=== PATIENT | female | born 1965 | race Caucasian/White ===

== ENCOUNTER → 2018-03-12 08:22 | Outpatient (CLI) | payer OTHER, SELFPAY ==
[2018-03-12 09:20] LABS: Add Manual Diff / Slide Review NO; Basophils Percent Auto 0.5 % (0-2); Eosinophils Percent Auto 1.6 % (2-4); Hematocrit 36.2 % (36-46); Hemoglobin 11.6 g/dL (12.0-16.0); Lymphocytes Percent Auto 30.3 % (25-40); Mean Corpuscular Hemoglobin 25.7 PG (26-34); Mean Corpuscular Volume 80.4 fL (80-100); Neutrophils Absolute Auto 3400 /uL (3000-5900); Neutrophils Percent Auto 57.6 % (50-75); Platelet Count 243 X10^3/uL (150-400); Red Cell Distribution Width 16.1 % (11.6-14.8); White Blood Cell Count 5.9 X10^3/uL (4.5-11.0)
[2018-03-12 09:42] LABS: Alanine Aminotransferase 34 IU/L (9-52); Albumin 4.4 g/dL (3.5-5.0); Albumin Globulin Ratio 1.4 (1.0-2.8); Alkaline Phosphatase 70 U/L (38-126); Aspartate Aminotransferase 35 IU/L (14-36); BUN Creatinine Ratio 12.5 (6-22); Bilirubin Total 0.5 mg/dL (0.2-1.3); Blood Urea Nitrogen 10 mg/dL (7-17); Calcium 9.3 mg/dL (8.4-10.2); Carbon Dioxide 28 mmol/L (22-32); Chloride 99 mmol/L (98-107); Cholesterol 170 mg/dL (140-199); Estimated Glomerular Filt Rate > 60.0 mL/min (>60); Globulin 3.2 g/dL (1.7-4.1); Glucose 89 mg/dL (70-100); HDL Cholesterol 79 mg/dL (40-60); HEMOLYSIS < 15 (0-50); LDL Cholesterol Calculated 80 mg/dL (<100); Potassium 4.3 mmol/L (3.4-5.1); Sodium 139 mmol/L (137-145); Total Protein 7.6 g/dL (6.3-8.2); Triglycerides 55 mg/dL (35-150)
[2018-03-12 10:07] LABS: TSH w/ Reflex to FT4 5.09 uIU/mL (0.47-4.68)
[2018-03-12 10:34] LABS: Free T4, Direct Thyroxine 0.77 ng/dL (0.78-2.19)
== END ==
PROVIDERS: PCP Family Medicine; Visit Provider Family Medicine
DX: Z00.00 Encounter for general adult medical examination without abnormal findings (principal)
CPT/HCPCS: 36415; 80053; 80061; 84439; 84443; 84481; 85025

== ENCOUNTER → 2018-05-06 17:09 | Outpatient (CLI) | payer OTHER, SELFPAY ==
[2018-05-06 18:32] LABS: Vitamin D 25 Hydroxy (D3) 53.8 ng/mL (30.0-100.0)
[2018-05-06 18:34] LABS: Free T4, Direct Thyroxine 0.68 ng/dL (0.78-2.19)
[2018-05-06 18:47] LABS: Thyroid Stimulating Hormone 3.94 uIU/mL (0.47-4.68)
[2018-05-08 14:11] LABS: Thyroid Peroxidase Antibodies 561 IU/mL (< 9)
[2018-05-09 21:46] LABS: Triiodothyronine T3 Total 73 ng/dL (76-181)
[2018-05-10 14:14] LABS: Triiodothyronine T3 Reverse 13 ng/dL (8-25)
== END ==
PROVIDERS: PCP Family Medicine; Visit Provider Family Medicine
DX: E06.3 Autoimmune thyroiditis (principal); Z78.0 Asymptomatic menopausal state
CPT/HCPCS: 36415; 82306; 83001; 84439; 84443; 84480; 84481; 84482; 86376

== ENCOUNTER → 2018-05-08 08:08 | Outpatient (CLI) | payer OTHER, SELFPAY | PROVIDERS: PCP Family Medicine; Visit Provider Family Medicine | DX: Z12.31 Encounter for screening mammogram for malignant neoplasm of breast (principal); Z53.9 Procedure and treatment not carried out, unspecified reason ==

== ENCOUNTER → 2018-05-24 12:10 | Outpatient (CLI) | payer OTHER, SELFPAY ==
--- NOTE | 2018-05-24 | DI.MRI.S_ITS ---
PROCEDURE: MR CERVICAL SPINE WO CON INDICATIONS: STRAIN OF MUSCLE/TENDON AT NECK LEVEL TECHNIQUE: Noncontrast sagittal T1 spin echo and T2 fast spin echo, sagittal STIR, foraminal oblique sagittal T2 fast spin echo, and axial gradient echo or T2 fast spin echo through the cervical spine. COMPARISON: [facility], , C-SPINE COMPLETE W FLEX/EXTEN, 10/26/2011, 12:10. [facility], CERVICAL SPINE 2 OR 3 VIEWS, 01/22/2015, 11:12. FINDINGS: Image quality: Diagnostic Alignment and Curvature: There is normal bony alignment. Bone Marrow: Marrow demonstrates normal overall signal. Spinal Cord: Visualized spinal cord has normal size and signal. No cerebellar tonsillar herniation. Paraspinous Soft Tissues: No paravertebral masses. Prevertebral soft tissues are normal in thickness. C2-C3: No significant abnormality is seen. C3-C4: The disc height is well-preserved. Loss of disc signal is seen at this level. Moderate bilateral neural foraminal narrowing is seen, right worse than left. Mild central canal narrowing is seen. C4-C5: Mild loss of disc height is seen. Loss of disc signal is seen. Mild to moderate disc osteophyte complex is seen. Mild facet joint hypertrophy is seen. Moderate bilateral neural foraminal narrowing is seen. Mild to moderate central canal narrowing is seen. C5-C6: The disc height is well-preserved. Loss of disc signal is seen at this level. Moderate generalized disc osteophyte complex is seen. Mild to moderate facet hypertrophy is seen. There is moderate to severe bilateral neural foraminal narrowing seen. Moderate central canal narrowing is seen. C6-C7: Postoperative changes are seen anteriorly, with associated susceptibility artifact. Mild to moderate disc osteophyte complex is seen. Moderate bilateral neural foraminal narrowing is seen, left worse than right. Minimal central canal narrowing is seen. C7-T1: The disc height is well-preserved. Loss of disc signal is seen at this level. A mild degree of generalized disc osteophyte complex is seen. Mild bilateral neural foraminal narrowing is seen. The central canal is widely patent. IMPRESSION: Unremarkable C6-C7 hardware anteriorly. Multiple levels of cervical spine degenerative change are seen, including moderate to severe bilateral neural foraminal narrowing at C5-C6. Dictated by: Darwin King M.D. on 05/24/2018 at 13:49 Approved by: Darwin King M.D. on 05/24/2018 at 13:56
== END ==
PROVIDERS: PCP Family Medicine; Visit Provider Orthopaedic Surgery
DX: S16.1XXA Strain of muscle, fascia and tendon at neck level, initial encounter (principal); M47.812 Spondylosis without myelopathy or radiculopathy, cervical region; M48.02 Spinal stenosis, cervical region
CPT/HCPCS: 72141

== ENCOUNTER → 2018-07-05 12:28 | Outpatient (CLI) | payer OTHER, SELFPAY ==
--- NOTE | 2018-07-05 | DI.MG.S_ITS ---
BILATERAL DIGITAL SCREENING MAMMOGRAM 3D/2D WITH CAD: 07/05/2018 CLINICAL: Routine screening. Family history of breast cancer. Comparison is made to exams dated: 05/22/2017 mammogram, 03/23/2016 mammogram, and 01/06/2015 mammogram - [facility]. The tissue of both breasts is extremely dense, which lowers the sensitivity of mammography. Current study was also evaluated with a Computer Aided Detection (CAD) system. There are a grouped calcifications in the left breast central to the nipple middle depth. No other significant masses, calcifications, or other findings are seen in either breast. IMPRESSION: INCOMPLETE: NEEDS ADDITIONAL IMAGING EVALUATION The grouped calcifications in the left breast are indeterminate. Spot magnification views are recommended. This exam was interpreted at Station ID: [id number]. NOTE: For mammograms, a report in lay terms will be sent to the patient. Approximately 15% of breast malignancies will not be visualized mammographically. In the management of a palpable breast mass, a negative mammogram must not discourage biopsy of a clinically suspicious lesion. Electronically Signed By: Jacque paige/christophe:07/05/2018 16:54:07 letter sent: Additional Imaging Needed ACR BI-RADS Category 0: Incomplete 3340F
== END ==
PROVIDERS: PCP Family Medicine; Visit Provider Family Medicine
DX: Z12.31 Encounter for screening mammogram for malignant neoplasm of breast (principal); Z80.3 Family history of malignant neoplasm of breast
CPT/HCPCS: 77063; 77067

== ENCOUNTER → 2018-07-23 13:11 | Outpatient (CLI) | payer OTHER, SELFPAY ==
--- NOTE | 2018-07-23 13:12 | DI.MG.S_ITS ---
UNILATERAL LEFT DIGITAL DIAGNOSTIC MAMMOGRAM 3D/2D WITH ADDITIONAL VIEWS: 07/23/2018 CLINICAL: Additional evaluation requested from prior study. Comparison is made to exams dated: 07/05/2018 mammogram, 05/22/2017 mammogram, and 03/23/2016 mammogram - [facility]. The tissue of left breast is extremely dense, which lowers the sensitivity of mammography. There are new grouped fine punctate calcifications in the left breast at 5 o'clock middle depth. No other significant masses or calcifications are seen in the breast. IMPRESSION: SUSPICIOUS OF MALIGNANCY The new grouped fine punctate calcifications in the left breast are at a low suspicion for malignancy. A stereotactic biopsy is recommended. The findings were discussed with the patient at the conclusion of the study by Dr. Sage. This exam was interpreted at Station ID: [id number]. NOTE: For mammograms, a report in lay terms will be sent to the patient. Approximately 15% of breast malignancies will not be visualized mammographically. In the management of a palpable breast mass, a negative mammogram must not discourage biopsy of a clinically suspicious lesion. Electronically Signed By: Barrie ramirez/:07/23/2018 14:41:45 letter sent: Biopsy Required ACR BI-RADS Category 4a: Suspicious abnormality - low suspicion for malignancy [id number]
== END ==
PROVIDERS: PCP Family Medicine; Visit Provider Family Medicine
DX: R92.1 Mammographic calcification found on diagnostic imaging of breast (principal); N60.11 Diffuse cystic mastopathy of right breast; N60.12 Diffuse cystic mastopathy of left breast; Z98.890 Other specified postprocedural states
CPT/HCPCS: 77065; G0279

== ENCOUNTER → 2018-08-15 11:45 | Outpatient (CLI) | payer OTHER, SELFPAY | PROVIDERS: PCP Family Medicine; Visit Provider Nurse Practitioner Occupational Health | DX: S16.1XXA Strain of muscle, fascia and tendon at neck level, initial encounter (principal); S29.019A Strain of muscle and tendon of unspecified wall of thorax, initial encounter; S56.511A Strain of other extensor muscle, fascia and tendon at forearm level, right arm, initial encounter | CPT/HCPCS: 95885; 95886; 95909 ==

== ENCOUNTER → 2018-09-02 08:47 | Outpatient (CLI) | payer OTHER, SELFPAY ==
[2018-09-02 09:39] LABS: Add Manual Diff / Slide Review NO; Basophils Absolute Auto 0 /uL (0-100); Basophils Percent Auto 0.4 % (0-2); Eosinophils Absolute Auto 100 /uL (0-450); Eosinophils Percent Auto 0.9 % (2-4); Hematocrit 38.6 % (36-46); Hemoglobin 12.9 g/dL (12.0-16.0); Lymphocytes Absolute Auto 1400 /uL (1100-4500); Lymphocytes Percent Auto 20.5 % (25-40); Mean Corpuscular HGB Conc 33.4 % (30-36); Mean Corpuscular Hemoglobin 29.1 PG (26-34); Mean Corpuscular Volume 87.1 fL (80-100); Monocytes Absolute Auto 500 /uL (0-900); Monocytes Percent Auto 7.6 % (3-14); Neutrophils Absolute Auto 4700 /uL (1500-7000); Neutrophils Percent Auto 70.6 % (50-75); Platelet Count 229 X10^3/uL (150-400); Red Blood Cell Count 4.43 X10^6/uL (4.0-5.2); Red Cell Distribution Width 14.9 % (11.6-14.8); White Blood Cell Count 6.7 X10^3/uL (4.5-11.0)
[2018-09-02 10:38] LABS: Ferritin 7.6 ng/mL (11.1-264)
[2018-09-02 10:48] LABS: HEMOLYSIS < 15 (0-50); Iron 39 ug/dL (37-170)
[2018-09-02 10:59] LABS: Percent Iron Saturation 10 % (15-50); Total Iron Binding Capacity 379 ug/dL (265-497); Transferrin 300 mg/dL (206-381)
[2018-09-02 11:07] LABS: Free T3, Triiodothyronine Free 3.45 pg/mL (2.77-5.27); Free T4, Direct Thyroxine 0.68 ng/dL (0.78-2.19)
[2018-09-02 11:20] LABS: Thyroid Stimulating Hormone 4.21 uIU/mL (0.47-4.68)
== END ==
PROVIDERS: PCP Family Medicine; Visit Provider Family Medicine
DX: D50.8 Other iron deficiency anemias (principal); E06.3 Autoimmune thyroiditis
CPT/HCPCS: 36415; 82728; 83540; 83550; 84439; 84443; 84481; 85025

== ENCOUNTER → 2018-10-15 12:00 | Oncology outpatient (ONC) | payer OTHER, SELFPAY ==
[2018-09-25 15:33] VITALS: BP 138/87; PULSE 73; RESP 15; TEMP 36.7; O2SAT 98
[2018-09-25] MEDS: IRON SUCROSE 250 MG in SODIUM CHLORIDE 0.9% 100 ML 225 ML IV (15:42)
[2018-10-02 12:13] VITALS: BP 129/88; PULSE 63; RESP 15; TEMP 36.8; O2SAT 98
[2018-10-02] MEDS: IRON SUCROSE 250 MG in SODIUM CHLORIDE 0.9% 100 ML 225 ML IV (12:21)
[2018-10-02 13:13] VITALS: BP 136/82; PULSE 70; RESP 16; TEMP 36.6; O2SAT 98
--- NOTE | 2018-10-02 13:13 | PC.NURSE ---
Pt c/o mild SIERRA 3/10 pain at end of iron infusion, triage nurse was notified. VSS, no SOB, pt was educated on what to do if symptoms worsen, and when to seek emergency medical help.
[2018-10-08] MEDS: IRON SUCROSE 250 MG in SODIUM CHLORIDE 0.9% 100 ML 175 ML IV (12:32)
--- NOTE | 2018-10-08 13:42 | PC.NURSE ---
Patient arrived to infusion for weekly iron infusion. Patient alert and oriented times 3. No acute distress! Pleasant mood while speaking with staff. Patient complaining of headache this day. Patient discussed with staff that she felt head fullness after last infusion. Patient and staff discussed this with Nima from pharmacy and recommend to infuse at lower rate agreed upon by patient. Patient tolerated infusion well.
[2018-10-15] MEDS: IRON SUCROSE 250 MG in SODIUM CHLORIDE 0.9% 100 ML 225 ML IV (12:31)
[2018-10-15 12:32] VITALS: BP 114/82; PULSE 72; RESP 16
== END ==
PROVIDERS: PCP Family Medicine; Visit Provider Family Medicine
DX: D64.9 Anemia, unspecified (principal)
CPT/HCPCS: 36415; 96365; J1756

== ENCOUNTER → 2018-11-11 16:35 | Outpatient (CLI) | payer OTHER, SELFPAY ==
[2018-11-11 17:08] LABS: Add Manual Diff / Slide Review NO; Basophils Absolute Auto 0 /uL (0-100); Basophils Percent Auto 0.4 % (0-2); Eosinophils Absolute Auto 0 /uL (0-450); Eosinophils Percent Auto 0.9 % (2-4); Hematocrit 41.1 % (36-46); Hemoglobin 13.8 g/dL (12.0-16.0); Lymphocytes Absolute Auto 1600 /uL (1100-4500); Lymphocytes Percent Auto 33.1 % (25-40); Mean Corpuscular HGB Conc 33.6 % (30-36); Mean Corpuscular Volume 89.5 fL (80-100); Monocytes Absolute Auto 600 /uL (0-900); Monocytes Percent Auto 12.1 % (3-14); Neutrophils Absolute Auto 2600 /uL (1500-7000); Neutrophils Percent Auto 53.5 % (50-75); Platelet Count 198 X10^3/uL (150-400); Red Blood Cell Count 4.59 X10^6/uL (4.0-5.2); Red Cell Distribution Width 15.9 % (11.6-14.8); White Blood Cell Count 4.8 X10^3/uL (4.5-11.0)
[2018-11-11 17:47] LABS: HEMOLYSIS < 15 (0-50); Iron 87 ug/dL (37-170)
[2018-11-11 17:58] LABS: Percent Iron Saturation 32 % (15-50); Total Iron Binding Capacity 269 ug/dL (265-497); Transferrin 221 mg/dL (206-381)
[2018-11-11 18:02] LABS: Vitamin B12 > 1000 pg/mL (239-931)
[2018-11-11 18:06] LABS: Free T3, Triiodothyronine Free 6.18 pg/mL (2.77-5.27)
[2018-11-11 18:19] LABS: Thyroid Stimulating Hormone < 0.02 uIU/mL (0.47-4.68)
[2018-11-15 13:52] LABS: Homocysteine 6.8 umol/L (< 10.4)
[2018-11-15 14:09] LABS: Triiodothyronine T3 Total 128 ng/dL (76-181)
[2018-11-15 16:15] LABS: Methylmalonic Acid 224 nmol/L (87-318)
== END ==
PROVIDERS: PCP Family Medicine; Visit Provider Family Medicine
DX: D50.8 Other iron deficiency anemias (principal); I10 Essential (primary) hypertension; E06.3 Autoimmune thyroiditis
CPT/HCPCS: 36415; 82607; 82728; 83090; 83540; 83550; 83921; 84439; 84443; 84480; 84481; 85025

== ENCOUNTER → 2018-11-12 09:02 | Outpatient (CLI) | payer OTHER, SELFPAY ==
[2018-11-12 09:22] LABS: Bilirubin Urine UA NEGATIVE (NEGATIVE); Color Urine UA YELLOW; Glucose Urine UA NEGATIVE (Negative); Ketones Urine UA NEGATIVE (NEGATIVE); Leukocyte Esterase Urine UA 1+ (NEGATIVE); Nitrite Urine UA NEGATIVE (Negative); Occult Blood Urine UA NEGATIVE (Negative); Protein Urine UA NEGATIVE (Negative); Specific Gravity Urine UA 1.015 (1.000-1.035); Urobilinogen Urine UA 0.2 E.U./dL (0.2); pH Urine UA 6.5 (4.5-8.0)
[2018-11-12 09:41] LABS: Appearance Urine UA Slightly Cloudy
[2018-11-12 09:43] LABS: RBC Urine 0-1/HPF (0-5/HPF); Squamous Epithelial Cell Urine 10-30 /HPF (0-5/HPF); Transitional Epi Cells Urine 0-1/HPF (0-5/HPF); WBC Urine 1-5/HPF (0-5/HPF)
[2018-11-12 09:44] LABS: Bacteria Urine Few (2-10)
== END ==
PROVIDERS: PCP Family Medicine; Visit Provider Family Medicine
DX: R39.89 Other symptoms and signs involving the genitourinary system (principal); E06.3 Autoimmune thyroiditis
CPT/HCPCS: 81001; 83789

== ENCOUNTER → 2019-01-09 08:38 | Outpatient (CLI) | payer OTHER, SELFPAY ==
[2019-01-09 10:16] LABS: Free T3, Triiodothyronine Free 3.25 pg/mL (2.77-5.27); Free T4, Direct Thyroxine 0.66 ng/dL (0.78-2.19)
[2019-01-09 10:29] LABS: Thyroid Stimulating Hormone 3.44 uIU/mL (0.47-4.68)
== END ==
PROVIDERS: PCP Family Medicine; Visit Provider Family Medicine
DX: E06.3 Autoimmune thyroiditis (principal)
CPT/HCPCS: 36415; 84439; 84443; 84481

== ENCOUNTER → 2019-01-13 08:15 | Outpatient (CLI) | payer OTHER, SELFPAY | PROVIDERS: PCP Family Medicine; Visit Provider Family Medicine | DX: D50.8 Other iron deficiency anemias (principal); E53.8 Deficiency of other specified B group vitamins | CPT/HCPCS: 82728 ==

== ENCOUNTER → 2019-05-14 08:50 | Outpatient (CLI) | payer OTHER, SELFPAY ==
[2019-05-14 09:32] LABS: Add Manual Diff / Slide Review NO; Basophils Absolute Auto 0 /uL (0-100); Basophils Percent Auto 0.5 % (0-2); Eosinophils Absolute Auto 100 /uL (0-450); Eosinophils Percent Auto 1.5 % (2-4); Hematocrit 42.4 % (36-46); Hemoglobin 14.7 g/dL (12.0-16.0); Lymphocytes Absolute Auto 1400 /uL (1100-4500); Lymphocytes Percent Auto 23.9 % (25-40); Mean Corpuscular HGB Conc 34.7 % (30-36); Mean Corpuscular Volume 92.1 fL (80-100); Monocytes Absolute Auto 500 /uL (0-900); Monocytes Percent Auto 8.1 % (3-14); Neutrophils Absolute Auto 4000 /uL (1500-7000); Platelet Count 208 X10^3/uL (150-400); Red Cell Distribution Width 13.5 % (11.6-14.8)
[2019-05-14 10:26] LABS: Free T3, Triiodothyronine Free 3.21 pg/mL (2.77-5.27); Free T4, Direct Thyroxine 0.77 ng/dL (0.78-2.19)
[2019-05-14 10:40] LABS: Thyroid Stimulating Hormone 3.16 uIU/mL (0.47-4.68)
[2019-05-14 10:44] LABS: Ferritin 95.4 ng/mL (11.1-264)
[2019-05-15 15:38] LABS: Thyroid Peroxidase Antibodies 373 IU/mL (< 9)
== END ==
PROVIDERS: PCP Family Medicine; Visit Provider Family Medicine
DX: D50.8 Other iron deficiency anemias (principal); E06.3 Autoimmune thyroiditis
CPT/HCPCS: 36415; 82728; 84439; 84443; 84481; 85025; 86376

== ENCOUNTER → 2019-10-28 17:01 | Outpatient (CLI) | payer OTHER, SELFPAY ==
--- NOTE | 2019-10-28 17:04 | DI.MG.S_ITS ---
BILATERAL DIGITAL SCREENING MAMMOGRAM 3D/2D WITH CAD: 10/28/2019 CLINICAL: Routine screening. Family history of breast cancer. Comparison is made to exams dated: 07/23/2018 mammogram, 07/05/2018 mammogram, 05/22/2017 mammogram, and 03/23/2016 mammogram - [facility]. The tissue of both breasts is extremely dense, which lowers the sensitivity of mammography. Current study was also evaluated with a Computer Aided Detection (CAD) system. There is a biopsy clip in the left breast. No significant masses, calcifications, or other findings are seen in either breast. There has been no significant interval change. IMPRESSION: NEGATIVE There is no mammographic evidence of malignancy. A 1 year screening mammogram is recommended. This exam was interpreted at Station ID: [id number]. NOTE: For mammograms, a report in lay terms will be sent to the patient. Approximately 15% of breast malignancies will not be visualized mammographically. In the management of a palpable breast mass, a negative mammogram must not discourage biopsy of a clinically suspicious lesion. Electronically Signed By: Blake eller/christophe:10/29/2019 07:41:56 letter sent: Normal Exam ACR BI-RADS Category 1: Negative [id number]
== END ==
PROVIDERS: PCP Family Medicine; Referring Provider Family Medicine; Visit Provider Family Medicine
DX: Z12.31 Encounter for screening mammogram for malignant neoplasm of breast (principal); Z80.3 Family history of malignant neoplasm of breast
CPT/HCPCS: 77063; 77067

== ENCOUNTER → 2019-11-24 14:38 | Outpatient (CLI) | payer OTHER, SELFPAY ==
[2019-11-24 15:29] LABS: Add Manual Diff / Slide Review NO; Basophils Absolute Auto 0 /uL (0-100); Basophils Percent Auto 0.4 % (0-2); Eosinophils Absolute Auto 100 /uL (0-450); Eosinophils Percent Auto 1.3 % (2-4); Hematocrit 40.1 % (36-46); Hemoglobin 13.3 g/dL (12.0-16.0); Lymphocytes Absolute Auto 2000 /uL (1100-4500); Lymphocytes Percent Auto 32.1 % (25-40); Mean Corpuscular HGB Conc 33.2 % (30-36); Mean Corpuscular Hemoglobin 31.2 PG (26-34); Mean Corpuscular Volume 93.9 fL (80-100); Monocytes Absolute Auto 600 /uL (0-900); Neutrophils Absolute Auto 3400 /uL (1500-7000); Neutrophils Percent Auto 56.2 % (50-75); Platelet Count 205 X10^3/uL (150-400); Red Blood Cell Count 4.27 X10^6/uL (4.0-5.2); Red Cell Distribution Width 12.8 % (11.6-14.8); White Blood Cell Count 6.1 X10^3/uL (4.5-11.0)
[2019-11-24 16:39] LABS: Free T3, Triiodothyronine Free 3.11 pg/mL (2.77-5.27); Free T4, Direct Thyroxine 0.87 ng/dL (0.78-2.19)
[2019-11-24 16:53] LABS: Thyroid Stimulating Hormone 0.899 uIU/mL (0.47-4.68)
== END ==
PROVIDERS: PCP Family Medicine; Referring Provider Family Medicine; Visit Provider Family Medicine
DX: D50.8 Other iron deficiency anemias (principal); E06.3 Autoimmune thyroiditis; E53.8 Deficiency of other specified B group vitamins; G62.9 Polyneuropathy, unspecified; Z78.0 Asymptomatic menopausal state
CPT/HCPCS: 36415; 83001; 84439; 84443; 84481; 85025

== ENCOUNTER → 2020-04-21 12:27 | Outpatient (CLI) | payer OTHER, SELFPAY ==
[2020-04-21 13:29] LABS: Add Manual Diff / Slide Review NO; Basophils Absolute Auto 0 /uL (0-100); Basophils Percent Auto 0.5 % (0-2); Eosinophils Absolute Auto 100 /uL (0-450); Eosinophils Percent Auto 1.1 % (2-4); Hematocrit 39.9 % (36-46); Hemoglobin 13.4 g/dL (12.0-16.0); Lymphocytes Absolute Auto 1900 /uL (1100-4500); Lymphocytes Percent Auto 36.5 % (25-40); Mean Corpuscular HGB Conc 33.4 % (30-36); Mean Corpuscular Volume 92.8 fL (80-100); Monocytes Absolute Auto 500 /uL (0-900); Monocytes Percent Auto 9.2 % (3-14); Neutrophils Absolute Auto 2700 /uL (1500-7000); Neutrophils Percent Auto 52.7 % (50-75); Platelet Count 191 X10^3/uL (150-400); Red Cell Distribution Width 13.4 % (11.6-14.8); White Blood Cell Count 5.1 X10^3/uL (4.5-11.0)
[2020-04-21 14:07] LABS: Free T3, Triiodothyronine Free 3.97 pg/mL (2.77-5.27); Free T4, Direct Thyroxine 1.05 ng/dL (0.78-2.19)
[2020-04-21 14:21] LABS: Alanine Aminotransferase 27 IU/L (<35); Albumin 4.5 g/dL (3.5-5.0); Albumin Globulin Ratio 1.3 (1.0-2.8); Alkaline Phosphatase 73 U/L (38-126); Aspartate Aminotransferase 42 IU/L (14-36); BUN Creatinine Ratio 11.8 (6-22); Bilirubin Total 0.8 mg/dL (0.2-1.3); Blood Urea Nitrogen 9 mg/dL (7-17); Calcium 9.5 mg/dL (8.4-10.2); Carbon Dioxide 31 mmol/L (22-32); Chloride 102 mmol/L (98-107); Cholesterol 212 mg/dL (140-199); Estimated Glomerular Filt Rate > 60.0 mL/min (>60); Globulin 3.5 g/dL (1.7-4.1); Glucose 88 mg/dL (70-100); HDL Cholesterol 81 mg/dL (40-60); HEMOLYSIS < 15 (0-50); LDL Cholesterol Calculated 117 mg/dL (<100); Potassium 3.7 mmol/L (3.4-5.1); Sodium 136 mmol/L (137-145); Thyroid Stimulating Hormone 1.07 uIU/mL (0.47-4.68); Triglycerides 71 mg/dL (35-150); Uric Acid 3.9 mg/dL (2.5-6.2)
== END ==
PROVIDERS: PCP Family Medicine; Referring Provider Family Medicine; Visit Provider Family Medicine
DX: D50.0 Iron deficiency anemia secondary to blood loss (chronic) (principal); E06.3 Autoimmune thyroiditis; M10.9 Gout, unspecified; Z13.1 Encounter for screening for diabetes mellitus; Z13.220 Encounter for screening for lipoid disorders
CPT/HCPCS: 36415; 80053; 80061; 84439; 84443; 84481; 84550; 85025

== ENCOUNTER → 2020-05-17 13:20 | Outpatient (CLI) | payer OTHER, SELFPAY ==
--- NOTE | 2020-05-17 | DI.US.S_ITS ---
LIMITED ULTRASOUND OF LEFT BREAST: 05/17/2020 CLINICAL: Patient returns today to evaluate a focal asymmetry in the left breast. Comparison is made to exams dated: 05/17/2020 mammogram, 10/28/2019 mammogram - [facility], 08/01/2018 specimen, 08/01/2018 stereotactic biopsy - [facility], 07/23/2018 mammogram, and 07/05/2018 mammogram - [facility]. Color flow and real-time ultrasound of the left breast upper outer quadrant were performed on the areas of interest. There is a 0.4 cm x 0.3 cm x 0.4 cm oval mass with an indistinct margin in the left breast at 1 o'clock middle depth. This oval mass is of mixed echogenicity with suggestion of a fatty hilum. This likely correlates with mammography findings. Color flow imaging demonstrates that there is no vascularity present. IMPRESSION: PROBABLY BENIGN The 0.4 cm x 0.3 cm x 0.4 cm oval mass in the left breast resembles a lymph node and is probably benign. Follow-up mammogram and ultrasound in 6 months is recommended. A follow-up left breast mammogram and an ultrasound in 6 months are recommended to demonstrate stability. Future imaging is recommended as follows: 11/16/2020 right ultrasound. This exam was interpreted at Station ID: [id number]. Electronically Signed By: Barrie ramirez/:05/17/2020 15:33:11 letter sent: Followup Recommended Ultrasound BI-RADS: 3 Probably benign
--- NOTE | 2020-05-17 13:20 | DI.MG.S_ITS ---
BILATERAL DIGITAL DIAGNOSTIC MAMMOGRAM 3D/2D: 05/17/2020 CLINICAL: Right breast mass. Comparison is made to exams dated: 10/28/2019 mammogram, 07/05/2018 mammogram, and 05/22/2017 mammogram - [facility]. The tissue of both breasts is extremely dense, which lowers the sensitivity of mammography. There is a new oval equal density mass with an obscured and circumscribed margin in the right breast at 11 o'clock anterior depth. This correlates as palpated. There is a new 0.4 cm oval high density focal asymmetry with an indistinct margin in the left breast at 1 o'clock middle depth. No other significant masses or calcifications are seen in either breast. IMPRESSION: INCOMPLETE: NEEDS ADDITIONAL IMAGING EVALUATION The new oval equal density mass in the right breast at 11 o'clock anterior depth resembles a cyst and is indeterminate. An ultrasound is recommended. The new 0.4 cm oval high density focal asymmetry in the left breast at 1 o'clock middle depth is indeterminate. An ultrasound is recommended. Ultrasound will be performed immediately following the current exam. Future imaging is recommended as follows: 10/28/2020 screening mammogram. This exam was interpreted at Station ID: [id number]. NOTE: For mammograms, a report in lay terms will be sent to the patient. Approximately 15% of breast malignancies will not be visualized mammographically. In the management of a palpable breast mass, a negative mammogram must not discourage biopsy of a clinically suspicious lesion. Electronically Signed By: Barrie Bennett M.D. ddp/:05/17/2020 14:30:42 ACR BI-RADS Category 0: Incomplete 3340F
--- NOTE | 2020-05-17 13:20 | DI.US.S_ITS ---
LIMITED ULTRASOUND OF RIGHT BREAST AND AXILLA: 05/17/2020 CLINICAL: Palpable right breast lump. Comparison is made to exams dated: 05/17/2020 mammogram, 10/28/2019 mammogram, 07/05/2018 mammogram, and 05/22/2017 mammogram - [facility]. Color flow and real-time ultrasound of the right breast 10 o'clock, and axilla regions were performed on the areas of interest. There is a 0.8 cm x 0.6 cm x 0.7 cm oval mass with a circumscribed margin in the right breast at 10 o'clock middle depth. This oval mass is hypoechoic with a well-defined boundary. This correlates as palpated. Color flow imaging demonstrates that there is no vascularity present. There also is a 2.4 cm x 2 cm x 2.2 cm oval cyst in the right breast at 10 o'clock posterior depth. This oval cyst is hypoechoic with internal echoes and posterior acoustic enhancement. This correlates as palpated and with mammography findings. Color flow imaging demonstrates that there is no vascularity present. No suspicious enlarged lymph nodes were seen sonographically in the right axilla. IMPRESSION: SUSPICIOUS OF MALIGNANCY The 0.8 cm x 0.6 cm x 0.7 cm oval mass in the right breast at 10 o'clock middle depth is suspicious of malignancy. An ultrasound guided biopsy is recommended. The 2.4 cm x 2 cm x 2.2 cm oval cyst in the right breast at 10 o'clock posterior depth is consistent with a complicated cyst and is probably benign. A follow-up ultrasound in 6 months is recommended. The findings were discussed with the patient at the conclusion of the study by Dr. Avila. This exam was interpreted at Station ID: [id number]. Electronically Signed By: Barrie ramirez/:05/17/2020 15:29:56 letter sent: Biopsy Required Ultrasound BI-RADS: 4 Suspicious for malignancy
== END ==
PROVIDERS: PCP Family Medicine; Referring Provider Family Medicine; Visit Provider Family Medicine
DX: R92.8 Other abnormal and inconclusive findings on diagnostic imaging of breast (principal); N63.11 Unspecified lump in the right breast, upper outer quadrant; N60.01 Solitary cyst of right breast; N63.21 Unspecified lump in the left breast, upper outer quadrant
CPT/HCPCS: 76642; 77066; G0279

== ENCOUNTER → 2020-05-28 10:38 | Outpatient (CLI) | payer OTHER, SELFPAY ==
--- NOTE | 2020-05-28 | PATH_ITS ---
[facility] Accession Number: [id number] . 01 Material submitted: . breast - RIGHT BREAST 10:00 3CMFN #1 . 01 Clinical history: . RIGHT BREAST MASS . 02 Diagnosis: Right Breast Mass at 10 o'clock, 3 cm from Nipple, #1, Needle Core Biopsy: Benign fibroglandular tissue with a portion of cyst lining. Features are most consistent with fibrocystic change, consisting of cystic dilatation of terminal ductules, patchy adenosis, fibrosis, apocrine metaplasia, very focal usual ductal hyperplasia, and one focus of chronic inflammation within the cyst wall. Negative for atypia or malignancy. Please correlate findings with clinical and imaging studies. V 06/01/2020 1408 Local . 02 Electronically signed: . Lacy Will MD, Pathologist NPI- [id number] . 01 Gross description: . Received in one formalin-filled container, labeled with the patient's name and designated right breast 10 o'clock 3 cm FN, are two gaitan-alvarenga, cylindrical-shaped portions of tissue which range in size from 1.0 x 0.1 x 0.1 cm to 1.2 x 0.1 x 0.1 cm. All fragments are totally submitted in one cassette. Possible collection date and time per requisition: 05/28/2020 at 15:33. Possible total fixation time: Approximately 69 hours. ([id number]) /FRDedra 06/01/2020 0232 Local . 02 Pathologist provided ICD-10: N60.11 . 02 CPT . 175118 Performed at: 01 [facility] [address] [place] [address] [address], [place], [place] [id number] MD Barrie De La Fuente MD Phone: [phone] Performed at: 02 [facility] [id number] [place] [id number] MD Elina Tracey MD Phone: [phone]
--- NOTE | 2020-05-28 | PATH_ITS ---
Note [facility] Accession Number: [id number] TESTS RESULT FLAG UNITS REF RANGE LAB Clinician Provided Cytology Information No. of containers..01 Other (Miscellaneous) RIGHT BREAST LESION DIAGNOSIS: RIGHT BREAST LESION, 10:00 3CMFN, FINE NEEDLE ASPIRATION. NEGATIVE FOR MALIGNANT CELLS. FOAMY MACROPHAGES AND RARE GROUP OF DUCTAL CELLS PRESENT, SUGGESTING NON-PROLIFERATIVE FIBROCYSTIC CHANGES. CLINICAL AND RADIOLOGIC CORRELATION IS RECOMMENDED TO ENSURE THAT THE LESION IS ADEQUATELY ASPIRATED. THIS INTERPRETATION INCLUDES EVALUATION OF A CELL BLOCK. Pathologist ICD10: 01 N63.10 Maicol Dillon MD, Pathologist NPI- [id number] Marcos Merchant, Duplicating Machine Servicer ([facility]) 01 4 CC, BROWN, CLOUDY RECEIVED: FRESH IN 10 ML SYRINGE. /VD 06/01/2020 0617 Local FLAG LEGEND: L-Low Normal,H-High Normal,LL-Alert Low,HH-Alert High <-Panic Low,>-Panic High,A-Abnormal,AA-Critical Abnormal Performed at: 01 =Z [facility] [address], [place] [address] Barrie De La Fuente MD, Performed at: 01 [facility] [address], [place], [place] [id number] MD Barrie De La Fuente MD Phone: [phone]
--- NOTE | 2020-05-28 | DI.MG.S_ITS ---
UNILATERAL RIGHT DIGITAL DIAGNOSTIC MAMMOGRAM POST-NEEDLE BIOPSY: 05/28/2020 CLINICAL: Right breast lump. Comparison is made to exams dated: 05/17/2020 mammogram, 10/28/2019 mammogram, and 07/05/2018 mammogram - [facility]. The tissue of right breast is extremely dense, which lowers the sensitivity of mammography. IMPRESSION: POST PROCEDURE MAMMOGRAM FOR MARKER PLACEMENT Future imaging is recommended as follows: 11/14/2020 follow-up right ultrasound, 11/14/2020 left mammogram and an ultrasound. The post biopsy marker is in expected position. This exam was interpreted at Station ID: [id number]. NOTE: For mammograms, a report in lay terms will be sent to the patient. Approximately 15% of breast malignancies will not be visualized mammographically. In the management of a palpable breast mass, a negative mammogram must not discourage biopsy of a clinically suspicious lesion. Electronically Signed By: Chris Duron M.D. sdh/:05/28/2020 14:57:15 ACR BI-RADS Category Post-procedure mammogram for marker placement
--- NOTE | 2020-05-28 10:39 | DI.US.S_ITS ---
ULTRASOUND GUIDED BIOPSY RIGHT BREAST WITH MARKING DEVICE INSERTED AND POST DIGITAL MAMMOGRAPHIC AND ULTRASOUND IMAGIN05/28/2020 CLINICAL: Right breast mass. PATIENT CONSENT: Risks (minor bleeding, infection, vasovagal reaction and repeat procedure), benefits and alternatives were explained to the patient and written informed consent was obtained. Correlation is made to exams dated: 05/17/2020 ultrasound, 05/17/2020 mammogram, 10/28/2019 mammogram - [facility], 08/01/2018 specimen, and 08/01/2018 stereotactic biopsy - [facility]. An ultrasound guided biopsy using real-time ultrasound was performed for the concerning circumscribed oval cystic mass located in the right breast at 10 o'clock anterior depth. The skin was prepped in the usual manner. Local anesthetic was administered to the access site. A skin priscilla was made in the breast. The abnormality was approached from the lateral aspect. An 18 gauge biopsy needle was placed adjacent to the abnormality through an introducer device under ultrasound guidance. Once the needle was documented to be in the correct location, four specimens were obtained using 18G Tmeno device through 17G introducer. A Vision marker clip was inserted into the biopsy cavity. A skin closure strip and a sterile dressing were applied to the access site. Post procedure digital mammographic and ultrasound imaging demonstrates the location device at the targeted area and partial removal of the abnormality. The specimens were sent to the laboratory for pathological analysis. The procedure was difficult due to very dense fibrotic tissue and close proximity to the undersurface of the cutaneous layer. Initially it was thought that there was a smaller solid mass superficial to a larger adjacent cyctic mass. The intended procedure was to performa a core biopsy of the smaller mass by approaching beneath that and the larger cystic structure. This was performed using the Temno device and its introducer needle. Several cores through the smaller mass were obtained and placed in formalin. It was then noted that the smaller mass had decreased in size and appeared flaccid. Aspiration with the Temno introducer needle was then obtained, and at that time it was noted that the larger cystic mass also was resolving. The fluid from within these two structures had combined, and was turbid and slightly brownish in color. This was provided to the lab also, for cytology. At termination of the study both structures had largely resolved. IMPRESSION: ULTRASOUND GUIDED BIOPSY BENIGN Ultrasound guided biopsy of the cystic mass in the right breast at 10 o'clock anterior depth was successful. Pathology indicates benign fibroglandular tissue with a portion of cyst lining. Features are most consistent with fibrocystic change, consisting of cystic dilatation of terminal ductules, patchy adenosis, fibrosis, apocrine metaplasia, very focal usual ductal hyperplasia, and one focus of chronic inflammation within the cyst wall. Negative for atypia or malignancy. Additional fine need aspiration results demonstrate negative for malignant cells. Foamy macrphages and rare group of ductal cells present, suggesting non-proliferative fibrocystic changes. Pathology results are concordant with imaging findings. Please note that the two structures in apposition both appear to have represented cysts, with differences in echogenicity. As noted both core biopsies and also fluid for cytology was obtained and provided separately to the lab. A follow-up mammogram and an ultrasound in 6 months is recommended to demonstrate stability/resolution. Future imaging is recommended as follows: 11/14/2020 follow-up right ultrasound, 11/14/2020 left mammogram and an ultrasound. This exam was interpreted at Station ID: [id number]. Chris Balbuena M.D. [facility],ar/:06/08/2020 08:05:33
== END ==
PROVIDERS: PCP Family Medicine; Referring Provider Family Medicine; Visit Provider Family Medicine
DX: N60.01 Solitary cyst of right breast (principal); N60.81 Other benign mammary dysplasias of right breast; N60.31 Fibrosclerosis of right breast
CPT/HCPCS: 19083; 77065

== ENCOUNTER → 2020-10-20 16:37 | Outpatient (CLI) | payer OTHER, SELFPAY ==
[2020-10-20 16:54] LABS: Add Manual Diff / Slide Review NO; Basophils Absolute Auto 0 /uL (0-100); Basophils Percent Auto 0.4 % (0-2); Eosinophils Absolute Auto 100 /uL (0-450); Eosinophils Percent Auto 0.8 % (2-4); Hematocrit 40.3 % (36-46); Hemoglobin 13.6 g/dL (12.0-16.0); Lymphocytes Absolute Auto 2300 /uL (1100-4500); Lymphocytes Percent Auto 33.9 % (25-40); Mean Corpuscular HGB Conc 33.7 % (30-36); Mean Corpuscular Hemoglobin 30.8 PG (26-34); Mean Corpuscular Volume 91.5 fL (80-100); Monocytes Absolute Auto 600 /uL (0-900); Monocytes Percent Auto 9.3 % (3-14); Neutrophils Absolute Auto 3700 /uL (1500-7000); Neutrophils Percent Auto 55.6 % (50-75); Platelet Count 201 X10^3/uL (150-400); Red Cell Distribution Width 13.5 % (11.6-14.8); White Blood Cell Count 6.7 X10^3/uL (4.5-11.0)
[2020-10-20 17:52] LABS: TSH w/ Reflex to FT4 1.51 uIU/mL (0.47-4.68)
== END ==
PROVIDERS: PCP Family Medicine; Referring Provider Family Medicine; Visit Provider Family Medicine
DX: D64.9 Anemia, unspecified (principal); E06.3 Autoimmune thyroiditis; E53.8 Deficiency of other specified B group vitamins
CPT/HCPCS: 36415; 84443; 85025

== ENCOUNTER → 2021-01-17 16:31 | Outpatient (CLI) | payer OTHER, SELFPAY ==
[2021-01-17 18:50] LABS: TSH w/ Reflex to FT4 2.22 uIU/mL (0.47-4.68)
== END ==
PROVIDERS: PCP Family Medicine; Referring Provider Family Medicine; Visit Provider Family Medicine
DX: E06.3 Autoimmune thyroiditis (principal)
CPT/HCPCS: 36415; 84443

== ENCOUNTER → 2021-02-18 13:13 | Outpatient (CLI) | payer OTHER, SELFPAY ==
--- NOTE | 2021-02-18 13:14 | DI.RAD.S_ITS ---
PROCEDURE: XR CHEST 2V INDICATIONS: positive ppd TECHNIQUE: 2 views of the chest were acquired. COMPARISON: [facility], , CHEST 2 VIEW, 01/22/2015, 11:12. FINDINGS: Surgical changes and devices: Cervical spine fixation hardware.. Lungs and pleura: Lungs are clear. No pleural effusions or pneumothorax. Mediastinum: Mediastinal contours are normal. Heart size is normal. Bones and chest wall: No suspicious bony abnormalities. Soft tissues appear unremarkable. IMPRESSION: No acute cardiopulmonary disease process. Dictated by: Jenna Danielle MD, PhD on 02/18/2021 at 15:42 Approved by: Jenna Danielle MD, PhD on 02/18/2021 at 15:43
--- NOTE | 2021-02-18 13:14 | DI.RAD.S_ITS ---
PROCEDURE: FL BARIUM SWALLOW W SPEECH INDICATIONS: Dysphagia COMPARISON: TECHNIQUE: Examination was conducted in conjunction with speech pathology per standard protocol. In the lateral projection, filming was performed of the patient swallowing. AP projection filming may also be performed with patient swallowing. COMPARISON: [facility], , BARIUM SWALLOW, 01/29/2015, 14:15. FINDINGS: Incidentally noted cervical spine fixation hardware at the level of C6-C7 Function: The oral preparatory phase appears normal, with proper containment. The subsequent oral propulsive phase, pharyngeal phase, and esophageal phase of swallowing also appear normal with all proffered substances. No laryngotracheal penetration or aspiration. There was vallecular pooling of contrast material. There was slight transient delay in passage of a calibrated barium tablet just below level of the cervical fixation hardware . Morphology: No cricopharyngeal bar is identified. No cervical esophageal webs. No Zenker's diverticulum. No strictures. IMPRESSION: No aspiration. Minimal transient delay in passage of a calibrated barium tablet as above. Dictated by: George Avila M.D. on 02/21/2021 at 9:44 Approved by: George Avila M.D. on 02/21/2021 at 9:45
--- NOTE | 2021-02-21 14:35 | ST.SWALLOW ---
Visit Care Team Role Provider Type Kavita Catalan DO Attending Provider Physician Primary Care Provider Referring Provider Specialty: [facility] Address: [address] [place] [address], [address], [place], [address] Email: [email or web address] Modified Barium Swallow Study [employer] Modified Barium Swallow Study Start: 02/21/21 13:40 Freq: Status: Active Protocol: Document 02/18/21 13:41 LNK (Rec: 02/21/21 14:33 [id number]) Modified Barium Swallow Study Total Time Visit Start Time 13:30 Visit Stop Time 14:10 Total Visit Minutes 40 Visit Information Plan of Care Dates 02/18/21-05/21/[address] Catalan Reason for Referral Dysphagia Setting Setting Outpatient Care Patient Information Identification Type Name,Date of Patient History Pt was seen for Modified Barium Swallow Study (MBSS) at the referral of Dr. Catalan. 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 Pt received voice therapy and feels her voice is back to normal. She does not take medications for her reflux at this time. She reported that she does follow some reflux precautions such as head of bed up, but doesn't follow an anti reflux diet. Pt describes her swallowing as having things stick in her throat, especially medications . She coughs and chokes at times with liquids and her saliva. Subjective Observations Pt was seated in the fluoroscopy chair. Instructions and procedures were decribed for the pt, who indicated she understood and agreed to proceed. Patient Positioning Position View Lat-A/P Imaging Lateral View Textures Administered Trials Presented Thin Liquid via Spoon,Thin Liquid via Cup,[place] Liquid via Spoon,Pudding Thick Liquid via Spoon,Regular Textures Oral Phase Source: MBSIMP (TM) (C) Bolus Specific Scoring Grid Lip Closure No Impairment (WNL) Tongue Control During Bolus Hold Minimal Impairment Bolus Transport/Lingual Motion No Impairment (WNL) A/P Lingual Propulsion Delay No Oral Residue No Impairment (WNL) Nasal Regurgitation No Additional Oral Phase Observations OME indicated structures to be WNL for strength and ROM. Diadochokineses was WNL. Natural teeth in good hygiene. With liquids, premature spillage to the valeculla was observed. ORAL PHASE: Pt was able to masticate with a rotary chew. No spillage to the floor of the mouth. Bolus hold and A/P control were observed to be WNL. Base of tongue appeared to be weak with limited linguapharyngeal contact made during the swallowing Pharyngeal Phase Source: MBSIMP (TM) (C) Bolus Specific Scoring Grid Delayed Initiation of Pharyngeal Swallow Spillage to the valeculla pre- swallow Soft Palate Elevation No Impairment (WNL) Tongue Base Strength/Range of Motion Mild Impairment Residue Along the Tongue Base Yes Clearance of Residue Along Tongue Base Mild Impairment Laryngeal Elevation Mild Impairment Anterior Hyoid Movement Moderate Impairment Epiglottic Range of Motion Mild Impairment Vallecular Residue Yes: Consistently present throughout MBSS Clearance of Vallecular Residue Moderate Impairment Laryngeal Vestibular Closure Minimal Impairment Pharyngeal Stripping Wave Severe Impairment Posterior Pharyngeal Wall Residue No Upper Esophageal Sphincter Opening Mild Impairment Residue in the Pyriform Sinuses No Esophageal Clearance Upright Position Moderate Impairment Additional Pharyngeal Phase Observations A weak tongue base was noted with minimal linguavelar contact, resulting in vallecullar pooling throughout the study. There was adequate laryngeal elevation; however there was minimal forward movement of the epiglottis, resulting in incomplete epiglottal inversion for small swallows (single tsp, saliva, subsequent swallows, etc.). For these swallows, the epiglottis was horizontal in the pharynx with ~ 1/3 of it against the posterior pharyngeal wall (observed 11x) . This results in an incomplete laryngeal seal and could account for pt's report of coughing/choking with liquids and her saliva. With larger and/or heavier boluses (i.e., consecutive swallows, barium paste, cookie with barium), the epiglottis did invert, sealing the laryngeal vestibule. There was no pharyngeal stripping observed in the posterior wall resulting in decreased bolus control through the pharynx. No pooling in the pyriform sinuses was observed. No laryngeal penetration nor aspiration was observed. A/P View Textures Administered Trials Presented Barium Tablet A/P View Observations Esophageal Function Poor Motility,Stasis,Narrowing Esophageal Clearance Upright Position Mild Impairment Additional Observations The esophageal phase of the swallow was screened. Observations included osteophytes that altered the esophagus, but did not impede bolus flow. There was some esophageal retention at the mid-chest area. The C6-C7 cage observed did protrude anteriorly and significantly narrowed the esophagus. The barium tablet was stopped at that level for ~5 seconds before it was moved to the stomach with additional water. These observations could account for the pt's report of globus sensation when she swallows. She reported consistent globus after the paste, cookie and tablet trials. Clinical Impressions Dysphagia Type mild pharyngoesophageal dysphagia Rehabilitation Potential Excellent Patient Appropriate for Therapy Yes Recommendations Treatment Plan Therapy Recommendations Outpatient Speech Therapy,Base of Tongue Exercises Recommended Referrals GI Consult Compensatory Strategies Recommendations Small Bites and Sips
== END ==
PROVIDERS: PCP Family Medicine; Referring Provider Family Medicine; Visit Provider Family Medicine
DX: R13.10 Dysphagia, unspecified (principal); R76.11 Nonspecific reaction to tuberculin skin test without active tuberculosis
CPT/HCPCS: 71046; 74230; 92611

== ENCOUNTER → 2021-03-29 14:14 | Outpatient (CLI) | payer OTHER, SELFPAY ==
[2021-03-29 14:53] LABS: BUN Creatinine Ratio 14.1 (6-22); Blood Urea Nitrogen 11 mg/dL (7-17); Carbon Dioxide 27 mmol/L (22-32); Chloride 104 mmol/L (98-107); Estimated Glomerular Filt Rate > 60.0 mL/min (>60); Glucose 110 mg/dL (70-100); HEMOLYSIS 16 (0-50); Sodium 141 mmol/L (137-145)
[2021-03-29 15:26] LABS: TSH w/ Reflex to FT4 1.46 uIU/mL (0.47-4.68)
[2021-03-29 16:39] LABS: Creatinine Urine Random 149.5 mg/dL
[2021-03-29 16:42] LABS: Microalbumi Creatinin Ratio Ur 15.3 ug/mg CR (<30); Microalbumin Urine Random 2.3 mg/dL (0-1.6)
== END ==
PROVIDERS: PCP Family Medicine; Referring Provider Family Medicine; Visit Provider Family Medicine
DX: E06.3 Autoimmune thyroiditis (principal); I10 Essential (primary) hypertension
CPT/HCPCS: 36415; 80048; 82043; 82570; 84443